=== PATIENT | male | born 1965 | race African-American/Black ===

== ENCOUNTER 2020-10-24 10:12 | Inpatient (IN) ==
[2020-10-24] MEDS ORDERED: SODIUM CHLORIDE 0.9% 2,000 ML IV STA (10:32)
[2020-10-24] MEDS ORDERED: THIAMINE 200 MG/2 ML VIAL IV STA (10:32)
[2020-10-24 11:09] LABS: Bacteria,Urine Occasional /HPF (Few); Bilirubin,Urine Negative (Negative); Blood, Urine Small mg/dL (Negative); Glucose,Urine (UA) >=500 mg/dL (Negative); Hyaline Casts,Urine 1 /LPF (0-3); Ketones,Urine 5 mg/dL (Negative); Nitrite,Urine Negative (Negative); Protein,Urine Negative; RBC,Urine 1 /HPF (0-4); Squamous Epithelial Cell,Urine Occasional /HPF (0-10); Urine Appearance Slightly Hazy (Clear); Urine Color Yellow (Yellow); Urine Specific Gravity 1.025 (1.001-1.035); Urine Urobilinogen < 2.0 EU/DL (0.2-1.0); WBC,Urine 2 /HPF (0-6)
[2020-10-24 11:18] LABS: ABG Base Excess -17.4 MMOL/L (-2.5-2.5); ABG HCO3 12.2 MMOL/L (20-26); ABG Oxygen Saturation 98.8 % (95-100); ABG PCO2 35.8 MM HG (35-48); ABG TCO2 10.6 MMOL/L (23-27)
[2020-10-24 11:20] LABS: ABG PH 7.133 (7.35-7.45)
[2020-10-24 11:21] LABS: Barbiturates Screen,Urine Negative (Negative); Benzodiazepines Screen,Urine Negative (Negative); Cannabinoid Screen,Urine Negative (Negative); Opiate Screen,Urine Negative (Negative); Phencyclidine Screen,Urine Negative (Negative)
[2020-10-24] MEDS ORDERED: cefTRIAXone 2,000 MG in SODIUM CHLORIDE 0.9% 100 ML IV ONE (11:22)
[2020-10-24 11:24] LABS: Basophils % 0.1 % (0.0-0.8); Hematocrit 46.4 VOL% (42.0-52.0); Hemoglobin 13.1 GM/DL (14.0-18.0); Immature Granulocytes % 1.9 %; Immature Granulocytes Absolute 0.26 #; Lymphocytes # 1.1 10*3/uL (1.4-4.0); Lymphocytes % 8.2 % (21.2-54.2); Mean Corpuscular HGB Conc 28.2 GM/DL (32-36); Mean Corpuscular Volume 112.9 FL (87-102); Mean Platelet Volume 11.4 FL (9.6-12.0); Monocytes % 5.6 % (1.7-12.7); Neutrophils % 84.2 % (38.7-73.9); Platelet Count 287 T/CUMM (130-400); Red Blood Count 4.11 MC/CUMM (3.8-5.5); Red Cell Distribution Width 13.2 % (9.3-17.3); White Blood Count 13.5 T/CUMM (4-12)
[2020-10-24] MEDS ORDERED: cefTRIAXone 2,000 MG in SYRINGE 1 EACH IV ONE (11:30)
[2020-10-24 11:41] LABS: INR 1.2; PT Patient Result 12.3 SECS (9.8-11.9); Partial Thromboplastin Time 26.4 SECS (23.9-33.8)
[2020-10-24 11:45] LABS: Acetaminophen 3.8 UG/ML (10-30); Salicylate 3.9 MG/DL (2.8-20)
[2020-10-24 11:50] LABS: Alanine Aminotransferase 12 U/L (16-61); Albumin 1.7 G/DL (3.4-5.0); Alkaline Phosphatase 75 U/L (45-117); Aspartate Amino Transferase 7 U/L (0-37); Bilirubin,Total < 0.39 MG/DL (0.2-1.0); Blood Urea Nitrogen 78 MG/DL (7-18); Carbon Dioxide 10 MMOL/L (21-32); Estimated Glom Filtration Rate 21 ML/MIN; Osmolality,Calculated 382.1 MOS/KG (273-304); Potassium 2.6 MMOL/L (3.5-5.1); Sodium 149 MMOL/L (136-145); Total Protein 4.4 G/DL (5.0-7.5)
[2020-10-24 11:51] LABS: Calcium 5.8 MG/DL (8.5-10.1)
[2020-10-24 11:52] LABS: Glucose 1247 MG/DL (74-106)
[2020-10-24] MEDS ORDERED: INSULIN REGULAR 100 UNIT/ML IV STA (11:57)
[2020-10-24] MEDS ORDERED: ACETAMINOPHEN 325 MG TABLET PO PRN (12:20)
[2020-10-24] MEDS ORDERED: DEXTROSE 50% 25 GM/50 ML VIAL IV PRN ×2 (12:28)
[2020-10-24] MEDS ORDERED: MAGNESIUM SULF RIDER 4 GM in PREMIX 1 EACH IV PRN (12:28)
[2020-10-24] MEDS ORDERED: SODIUM BICARB INJ 100 MEQ in STERILE WATER INJ 400 ML IV PRN (12:28)
[2020-10-24] MEDS ORDERED: SODIUM PHOSPHATE INJ 13 MMOL in SODIUM CHLORIDE 0.9% 250 ML IV PRN (12:28)
[2020-10-24] MEDS ORDERED: MAGNESIUM SULF RIDER 2 GM in PREMIX 1 EACH IV PRN (12:28)
[2020-10-24] MEDS ORDERED: SODIUM CHLORIDE 0.9% 1,000 ML IV STA (12:48)
[2020-10-24] MEDS ORDERED: NOREPINEPHRINE 8 MG in SODIUM CHLORIDE 0.9% 242 ML IV PRN (12:49)
[2020-10-24 13:09] LABS: Calcium 8.8 MG/DL (8.5-10.1); Osmolality,Calculated 397.3 MOS/KG (273-304); Potassium 5.2 MMOL/L (3.5-5.1)
[2020-10-24] MEDS: SODIUM CHLORIDE 0.9% 1,000 ML IV ONE ×3 (13:20→15:46)
[2020-10-24] MEDS: SODIUM CHLORIDE 0.9% 1,000 ML IV SCH ×6 (14:00→18:13)
[2020-10-24] MEDS: ENOXAPARIN 30 MG/0.3 ML SYRINGE SUBCUT SCH (14:30)
[2020-10-24] MEDS: PANTOPRAZOLE 40 MG VIAL IV SCH (14:30)
[2020-10-24] MEDS: SODIUM CHLOR 0.9% KCL 40 MEQ 40 MEQ/1,000 ML BAG IV SCH ×2 (14:34→20:08)
[2020-10-24] MEDS: INSULIN REGULAR DRIP 100 ML IV SCH (14:46)
[2020-10-24 14:52] LABS: ABG Base Excess -14.7 MMOL/L (-2.5-2.5); ABG HCO3 13.6 MMOL/L (20-26); ABG Oxygen Saturation 97.3 % (95-100); ABG PCO2 37.9 MM HG (35-48); ABG TCO2 12.3 MMOL/L (23-27); Allen Test Positive
[2020-10-24 17:11] LABS: Calcium 8.7 MG/DL (8.5-10.1); Osmolality,Calculated 388.7 MOS/KG (273-304); Potassium 4.6 MMOL/L (3.5-5.1)
[2020-10-24] MEDS: SODIUM CHLORIDE 0.45% 1,000 ML IV SCH (20:09)
[2020-10-24 20:59] LABS: Calcium 8.5 MG/DL (8.5-10.1); Osmolality,Calculated 389.7 MOS/KG (273-304)
[2020-10-25] MEDS: SODIUM CHLORIDE 0.45% 1,000 ML IV SCH ×5 (00:28→08:40)
[2020-10-25 00:37] LABS: Calcium 8.6 MG/DL (8.5-10.1); Potassium 4.5 MMOL/L (3.5-5.1)
[2020-10-25 00:48] LABS: Osmolality,Calculated 379.5 MOS/KG (273-304)
[2020-10-25] MEDS: SODIUM CHLOR 0.9% KCL 40 MEQ 40 MEQ/1,000 ML BAG IV SCH (04:15)
[2020-10-25 04:54] LABS: Basophils % 0.2 % (0.0-0.8); Eosinophils % 0.1 % (0.00-10.9); Hematocrit 45.7 VOL% (42.0-52.0); Hemoglobin 13.9 GM/DL (14.0-18.0); Immature Granulocytes % 0.6 %; Immature Granulocytes Absolute 0.12 #; Lymphocytes # 1.3 10*3/uL (1.4-4.0); Mean Corpuscular HGB Conc 30.4 GM/DL (32-36); Mean Platelet Volume 10.7 FL (9.6-12.0); Monocytes % 8.7 % (1.7-12.7); Neutrophils % 83.4 % (38.7-73.9); Platelet Count 219 T/CUMM (130-400); Red Blood Count 4.48 MC/CUMM (3.8-5.5); Red Cell Distribution Width 12.9 % (9.3-17.3); White Blood Count 18.6 T/CUMM (4-12)
[2020-10-25 05:17] LABS: Albumin 2.1 G/DL (3.4-5.0); Bilirubin,Total 1.1 MG/DL (0.2-1.0); Calcium 8.9 MG/DL (8.5-10.1); Osmolality,Calculated 375.2 MOS/KG (273-304); Potassium 4.9 MMOL/L (3.5-5.1)
[2020-10-25 05:52] LABS: Anisocytosis 1+; Band Neutrophils 31 % (0-10); Eosinophils 2 % (0-10); Lymphocytes 7 % (20-55); Macrocytosis 1+; Metamyelocytes 3 %; Platelet Estimate Normal; Segmented Neutrophils 53 % (50-85); Smudge Cells Few; Total Cells Counted 100
[2020-10-25 08:47] LABS: Calcium 8.9 MG/DL (8.5-10.1); Osmolality,Calculated 369.8 MOS/KG (273-304); Potassium 4.5 MMOL/L (3.5-5.1)
[2020-10-25 09:27] LABS: Amorphous Crystals,Urine Few /HPF (Few); Bacteria,Urine Occasional /HPF (Few); Bilirubin,Urine Negative (Negative); Blood, Urine Large mg/dL (Negative); Glucose,Urine (UA) >=500 mg/dL (Negative); Ketones,Urine 20 mg/dL (Negative); Mucus,Urine Occasional /LPF (Occasional); Nitrite,Urine Negative (Negative); Protein,Urine Negative; RBC,Urine 102 /HPF (0-4); Red Blood Cell Casts,Urine 9 /LPF (<1); Urine Appearance CLOUDY (Clear); Urine Color Yellow (Yellow); Urine Specific Gravity 1.016 (1.001-1.035); Urine Urobilinogen < 2.0 EU/DL (0.2-1.0); WBC,Urine 9 /HPF (0-6)
[2020-10-25] MEDS: FOLIC ACID INJ 1 MG in SYRINGE 1 EACH IV SCH (09:49)
[2020-10-25] MEDS: THIAMINE 200 MG/2 ML VIAL IV SCH (09:49)
[2020-10-25] MEDS: MULTIVITAMIN (BEROCCA) TABLET PO SCH (09:50)
[2020-10-25] MEDS ORDERED: SODIUM CHLORIDE 23.4% CONC INJ 38.5 MEQ in STERILE WATER INJ 1,000 ML IV SCH (12:00)
[2020-10-25] MEDS: PANTOPRAZOLE 40 MG VIAL IV SCH (12:05)
[2020-10-25] MEDS: ENOXAPARIN 30 MG/0.3 ML SYRINGE SUBCUT SCH (12:31)
[2020-10-25] MEDS: INSULIN REGULAR DRIP 100 ML IV SCH (12:32)
[2020-10-25 13:03] LABS: Calcium 9.3 MG/DL (8.5-10.1); Osmolality,Calculated 363.5 MOS/KG (273-304); Potassium 4.2 MMOL/L (3.5-5.1)
[2020-10-25 16:52] LABS: Calcium 9.1 MG/DL (8.5-10.1); Osmolality,Calculated 357.3 MOS/KG (273-304); Potassium 3.9 MMOL/L (3.5-5.1)
[2020-10-25] MEDS: DEXTROSE 5% 1,000 ML IV SCH (17:42)
[2020-10-25] MEDS: POTASSIUM CHLORIDE RIDER 10 MEQ in PREMIX 1 EACH IV PRN ×3 (17:48→21:49)
[2020-10-25 20:23] LABS: Osmolality,Calculated 351.5 MOS/KG (273-304); Potassium 3.5 MMOL/L (3.5-5.1)
[2020-10-26 03:47] LABS: Basophils % 0.3 % (0.0-0.8); Eosinophils # 0.1 10*3/uL (0.0-0.87); Eosinophils % 0.7 % (0.00-10.9); Hematocrit 38.4 VOL% (42.0-52.0); Immature Granulocytes % 0.6 %; Immature Granulocytes Absolute 0.07 #; Lymphocytes # 1.5 10*3/uL (1.4-4.0); Lymphocytes % 13.1 % (21.2-54.2); Mean Corpuscular HGB Conc 33.9 GM/DL (32-36); Mean Corpuscular Volume 94.8 FL (87-102); Mean Platelet Volume 10.3 FL (9.6-12.0); Neutrophils % 79.3 % (38.7-73.9); Platelet Count 141 T/CUMM (130-400); Red Blood Count 4.05 MC/CUMM (3.8-5.5); White Blood Count 11.6 T/CUMM (4-12)
[2020-10-26 04:04] LABS: Albumin 2.1 G/DL (3.4-5.0); Bilirubin,Total 0.9 MG/DL (0.2-1.0); Calcium 9.2 MG/DL (8.5-10.1); Osmolality,Calculated 343.5 MOS/KG (273-304); Potassium 3.2 MMOL/L (3.5-5.1); Total Protein 6.1 G/DL (5.0-7.5)
[2020-10-26] MEDS: DEXTROSE 5% 1,000 ML IV SCH ×2 (04:34→13:52)
[2020-10-26] MEDS: POTASSIUM CHLORIDE RIDER 10 MEQ in PREMIX 1 EACH IV PRN ×13 (04:35→23:23)
[2020-10-26 04:58] LABS: Hepatitis B Core IgM Quant < 0.05 Index; Hepatitis B Surface Ag Quant < 0.10 Index; Hepatitis B Surface Ag Result Non-Reactive (NonReactive); Hepatitis C Virus Ab Quant 0.08 Index; Hepatitis C Virus Ab Result Non-Reactive (NonReactive)
[2020-10-26] MEDS ORDERED: HALOPERIDOL 5 MG/ML AMP IM PRN (08:42)
[2020-10-26] MEDS ORDERED: GLUCAGON 1 MG VIAL IM PRN (08:49)
[2020-10-26 08:52] LABS: Osmolality,Calculated 342.8 MOS/KG (273-304); Potassium 3.4 MMOL/L (3.5-5.1)
[2020-10-26] MEDS: FOLIC ACID INJ 1 MG in SYRINGE 1 EACH IV SCH (09:21)
[2020-10-26] MEDS: THIAMINE 200 MG/2 ML VIAL IV SCH (09:21)
[2020-10-26] MEDS: INSULIN GLARGINE 100 UNIT/ML SUBCUT SCH (09:21)
[2020-10-26] MEDS: MULTIVITAMIN (BEROCCA) TABLET PO SCH (09:21)
[2020-10-26] MEDS: INSULIN LISPRO 100 UNIT/ML SUBCUT SCH ×4 (09:22→20:02)
[2020-10-26] MEDS: ENOXAPARIN 30 MG/0.3 ML SYRINGE SUBCUT SCH (12:00)
[2020-10-26] MEDS: PANTOPRAZOLE 40 MG VIAL IV SCH (12:00)
[2020-10-26 13:23] LABS: Calcium 8.9 MG/DL (8.5-10.1); Osmolality,Calculated 332.3 MOS/KG (273-304); Potassium 3.5 MMOL/L (3.5-5.1)
[2020-10-26] MEDS: HALOPERIDOL 5 MG/ML AMP IV PRN ×2 (14:30→20:03)
[2020-10-26 16:32] LABS: Osmolality,Calculated 330.6 MOS/KG (273-304); Potassium 3.6 MMOL/L (3.5-5.1)
[2020-10-26 20:28] LABS: Calcium 8.9 MG/DL (8.5-10.1); Osmolality,Calculated 324.9 MOS/KG (273-304); Potassium 3.5 MMOL/L (3.5-5.1)
[2020-10-27 00:22] LABS: Calcium 8.9 MG/DL (8.5-10.1); Osmolality,Calculated 314.3 MOS/KG (273-304); Potassium 3.9 MMOL/L (3.5-5.1)
[2020-10-27] MEDS: INSULIN LISPRO 100 UNIT/ML SUBCUT SCH ×6 (00:37→20:22)
[2020-10-27] MEDS: POTASSIUM CHLORIDE RIDER 10 MEQ in PREMIX 1 EACH IV PRN (00:39)
[2020-10-27] MEDS: DEXTROSE 5% 1,000 ML IV SCH ×3 (03:12→16:57)
[2020-10-27 04:16] LABS: Basophils % 0.1 % (0.0-0.8); Eosinophils # 0.1 10*3/uL (0.0-0.87); Eosinophils % 1.2 % (0.00-10.9); Hematocrit 37.8 VOL% (42.0-52.0); Hemoglobin 11.9 GM/DL (14.0-18.0); Immature Granulocytes % 0.8 %; Immature Granulocytes Absolute 0.08 #; Lymphocytes # 2.2 10*3/uL (1.4-4.0); Mean Corpuscular HGB Conc 31.5 GM/DL (32-36); Mean Corpuscular Volume 100.5 FL (87-102); Mean Platelet Volume 10.9 FL (9.6-12.0); Monocytes % 6.6 % (1.7-12.7); Neutrophils % 68.3 % (38.7-73.9); Platelet Count 102 T/CUMM (130-400); Red Blood Count 3.76 MC/CUMM (3.8-5.5); Red Cell Distribution Width 13.2 % (9.3-17.3); White Blood Count 9.5 T/CUMM (4-12)
[2020-10-27 04:42] LABS: Calcium 8.7 MG/DL (8.5-10.1); Osmolality,Calculated 316.4 MOS/KG (273-304)
[2020-10-27 04:51] LABS: Band Neutrophils 3 % (0-10); Eosinophils 1 % (0-10); Hypochromasia 1+; Lymphocytes 18 % (20-55); Microcytosis 1+; Platelet Estimate Decreased; Segmented Neutrophils 76 % (50-85); Total Cells Counted 100
[2020-10-27] MEDS: MULTIVITAMIN (BEROCCA) TABLET PO SCH (08:37)
[2020-10-27] MEDS: INSULIN GLARGINE 100 UNIT/ML SUBCUT SCH (08:37)
[2020-10-27] MEDS: THIAMINE 200 MG/2 ML VIAL IV SCH (08:37)
[2020-10-27] MEDS: FONDAPARINUX 2.5 MG/0.5 ML SYRINGE SUBCUT SCH (08:37)
[2020-10-27] MEDS: FOLIC ACID INJ 1 MG in SYRINGE 1 EACH IV SCH (08:39)
[2020-10-27] MEDS ORDERED: FAMOTIDINE 20 MG/2 ML VIAL IV SCH (09:00)
[2020-10-27] MEDS ORDERED: ENOXAPARIN 40 MG/0.4 ML SYRINGE SUBCUT SCH (09:00)
[2020-10-27] MEDS ORDERED: POTASSIUM PHOSPHATE 30 MMOL in SODIUM CHLORIDE 0.9% 250 ML IV ONE (10:00)
[2020-10-27] MEDS ORDERED: HALOPERIDOL 5 MG/ML AMP IM PRN (17:00)
[2020-10-27] MEDS ORDERED: PALIPERIDONE PALMITATE IM SCH (17:15)
[2020-10-27] MEDS: LITHIUM ER 300 MG TABLET PO SCH (20:05)
[2020-10-27] MEDS: DIVALPROEX ER 500 MG TABLET PO SCH (20:23)
[2020-10-27] MEDS: FAMOTIDINE 8 MG/ML 50 ML/BOTTLE PO SCH (20:23)
[2020-10-28] MEDS: DEXTROSE 5% 1,000 ML IV SCH ×2 (00:04→06:04)
[2020-10-28] MEDS: INSULIN LISPRO 100 UNIT/ML SUBCUT SCH ×6 (00:04→20:47)
[2020-10-28 04:54] LABS: Basophils % 0.1 % (0.0-0.8); Eosinophils # 0.2 10*3/uL (0.0-0.87); Eosinophils % 1.8 % (0.00-10.9); Hematocrit 42.7 VOL% (42.0-52.0); Hemoglobin 13.6 GM/DL (14.0-18.0); Immature Granulocytes % 0.2 %; Immature Granulocytes Absolute 0.02 #; Lymphocytes # 2.2 10*3/uL (1.4-4.0); Lymphocytes % 26.2 % (21.2-54.2); Mean Corpuscular HGB Conc 31.9 GM/DL (32-36); Mean Corpuscular Volume 98.8 FL (87-102); Mean Platelet Volume 10.7 FL (9.6-12.0); Monocytes % 5.8 % (1.7-12.7); Neutrophils % 65.9 % (38.7-73.9); Platelet Count 103 T/CUMM (130-400); Red Blood Count 4.32 MC/CUMM (3.8-5.5); Red Cell Distribution Width 12.8 % (9.3-17.3); White Blood Count 8.3 T/CUMM (4-12)
[2020-10-28 05:11] LABS: Calcium 9.2 MG/DL (8.5-10.1); Osmolality,Calculated 304.7 MOS/KG (273-304); Potassium 4.7 MMOL/L (3.5-5.1)
[2020-10-28] MEDS: INSULIN GLARGINE 100 UNIT/ML SUBCUT SCH (08:22)
[2020-10-28] MEDS: FOLIC ACID 1 MG TABLET PO SCH (08:22)
[2020-10-28] MEDS: THIAMINE 100 MG TABLET PO SCH (08:22)
[2020-10-28] MEDS: FAMOTIDINE 8 MG/ML 50 ML/BOTTLE PO SCH ×2 (08:22→20:48)
[2020-10-28] MEDS: FONDAPARINUX 2.5 MG/0.5 ML SYRINGE SUBCUT SCH (08:22)
[2020-10-28] MEDS: MULTIVITAMIN (BEROCCA) TABLET PO SCH (08:22)
[2020-10-28] MEDS: DIVALPROEX ER 500 MG TABLET PO SCH (20:48)
[2020-10-28] MEDS: LITHIUM ER 300 MG TABLET PO SCH (20:48)
[2020-10-29] MEDS: INSULIN LISPRO 100 UNIT/ML SUBCUT SCH ×6 (00:40→20:58)
[2020-10-29] MEDS: INSULIN GLARGINE 100 UNIT/ML SUBCUT SCH (08:16)
[2020-10-29] MEDS: MULTIVITAMIN (BEROCCA) TABLET PO SCH (08:16)
[2020-10-29] MEDS: FOLIC ACID 1 MG TABLET PO SCH (08:16)
[2020-10-29] MEDS: FONDAPARINUX 2.5 MG/0.5 ML SYRINGE SUBCUT SCH (08:16)
[2020-10-29] MEDS: THIAMINE 100 MG TABLET PO SCH (08:17)
[2020-10-29] MEDS: FAMOTIDINE 8 MG/ML 50 ML/BOTTLE PO SCH ×2 (08:17→20:59)
[2020-10-29] MEDS: LITHIUM ER 300 MG TABLET PO SCH (20:58)
[2020-10-29] MEDS: DIVALPROEX ER 500 MG TABLET PO SCH (20:58)
[2020-10-30] MEDS: INSULIN LISPRO 100 UNIT/ML SUBCUT SCH ×6 (00:05→21:12)
[2020-10-30] MEDS: MULTIVITAMIN (BEROCCA) TABLET PO SCH (08:06)
[2020-10-30] MEDS: FONDAPARINUX 2.5 MG/0.5 ML SYRINGE SUBCUT SCH (08:06)
[2020-10-30] MEDS: THIAMINE 100 MG TABLET PO SCH (08:07)
[2020-10-30] MEDS: INSULIN GLARGINE 100 UNIT/ML SUBCUT SCH (08:07)
[2020-10-30] MEDS: FOLIC ACID 1 MG TABLET PO SCH (08:07)
[2020-10-30] MEDS: FAMOTIDINE 8 MG/ML 50 ML/BOTTLE PO SCH ×2 (08:07→21:13)
[2020-10-30] MEDS: DIVALPROEX ER 500 MG TABLET PO SCH (21:13)
[2020-10-30] MEDS: LITHIUM ER 300 MG TABLET PO SCH (21:13)
[2020-10-31] MEDS: INSULIN LISPRO 100 UNIT/ML SUBCUT SCH ×5 (01:27→19:09)
[2020-10-31] MEDS: FAMOTIDINE 8 MG/ML 50 ML/BOTTLE PO SCH ×2 (09:27→20:29)
[2020-10-31] MEDS: MULTIVITAMIN (BEROCCA) TABLET PO SCH (09:27)
[2020-10-31] MEDS: FOLIC ACID 1 MG TABLET PO SCH (09:27)
[2020-10-31] MEDS: FONDAPARINUX 2.5 MG/0.5 ML SYRINGE SUBCUT SCH (09:27)
[2020-10-31] MEDS: INSULIN GLARGINE 100 UNIT/ML SUBCUT SCH ×2 (09:27→15:37)
[2020-10-31] MEDS: THIAMINE 100 MG TABLET PO SCH (09:28)
[2020-10-31 13:09] LABS: Basophils % 0.3 % (0.0-0.8); Hematocrit 56.7 VOL% (42.0-52.0); Hemoglobin 16.7 GM/DL (14.0-18.0); Immature Granulocytes % 1.6 %; Immature Granulocytes Absolute 0.15 #; Lymphocytes # 1.4 10*3/uL (1.4-4.0); Lymphocytes % 15.1 % (21.2-54.2); Mean Corpuscular HGB Conc 29.5 GM/DL (32-36); Mean Corpuscular Volume 105.6 FL (87-102); Mean Platelet Volume 11.7 FL (9.6-12.0); Monocytes % 5.8 % (1.7-12.7); Neutrophils % 77.2 % (38.7-73.9); Platelet Count 384 T/CUMM (130-400); Red Blood Count 5.37 MC/CUMM (3.8-5.5); White Blood Count 9.3 T/CUMM (4-12)
[2020-10-31] MEDS ORDERED: SODIUM CHLORIDE 0.9% 1,000 ML IV SCH (13:30)
[2020-10-31 13:33] LABS: Albumin 3.1 G/DL (3.4-5.0); Bilirubin,Total 0.7 MG/DL (0.2-1.0); Calcium 10.9 MG/DL (8.5-10.1); Osmolality,Calculated 373.1 MOS/KG (273-304); Potassium 5.8 MMOL/L (3.5-5.1); Total Protein 8.8 G/DL (5.0-7.5)
[2020-10-31] MEDS: HALOPERIDOL 5 MG/ML AMP IM PRN ×2 (14:57→17:32)
[2020-10-31] MEDS ORDERED: LACTATED RINGERS 2,000 ML IV ONE (15:29)
[2020-10-31] MEDS ORDERED: MIDAZOLAM 2 MG/2 ML VIAL IV ONE (18:05)
[2020-10-31] MEDS ORDERED: MIDAZOLAM 2 MG/2 ML VIAL ONE (18:08)
[2020-10-31] MEDS: LACTATED RINGERS 1,000 ML IV SCH (18:13)
[2020-10-31] MEDS ORDERED: DEXTROSE 50% 25 GM/50 ML VIAL IV PRN (18:28)
[2020-10-31] MEDS ORDERED: INSULIN REGULAR DRIP 100 ML IV SCH (18:30)
[2020-10-31] MEDS ORDERED: LACTATED RINGERS 1,000 ML IV ONE (18:32)
[2020-10-31 19:50] LABS: Calcium 10.1 MG/DL (8.5-10.1); Osmolality,Calculated 355.5 MOS/KG (273-304)
[2020-10-31] MEDS: DIVALPROEX ER 500 MG TABLET PO SCH (20:29)
[2020-10-31] MEDS: HALOPERIDOL 5 MG TABLET PO SCH (20:29)
[2020-10-31] MEDS: LITHIUM ER 300 MG TABLET PO SCH (20:29)
[2020-10-31 23:36] LABS: Calcium 9.7 MG/DL (8.5-10.1); Osmolality,Calculated 344.9 MOS/KG (273-304)
[2020-11-01] MEDS: HALOPERIDOL 5 MG/ML AMP IM PRN ×3 (00:15→08:52)
[2020-11-01] MEDS ORDERED: DEXTROSE 5% LACTATED RINGERS 1,000 ML IV SCH (00:30)
[2020-11-01] MEDS: HALOPERIDOL 5 MG TABLET PO SCH ×2 (02:20→08:52)
[2020-11-01 03:40] LABS: Basophils % 0.1 % (0.0-0.8); Eosinophils % 0.1 % (0.00-10.9); Hematocrit 43.3 VOL% (42.0-52.0); Immature Granulocytes % 0.4 %; Immature Granulocytes Absolute 0.04 #; Lymphocytes # 2.5 10*3/uL (1.4-4.0); Lymphocytes % 24.3 % (21.2-54.2); Mean Corpuscular HGB Conc 32.3 GM/DL (32-36); Mean Corpuscular Volume 96.7 FL (87-102); Monocytes % 8.4 % (1.7-12.7); Neutrophils % 66.7 % (38.7-73.9); Platelet Count 251 T/CUMM (130-400); Red Blood Count 4.48 MC/CUMM (3.8-5.5); Red Cell Distribution Width 12.5 % (9.3-17.3); White Blood Count 10.3 T/CUMM (4-12)
[2020-11-01] MEDS: LACTATED RINGERS 1,000 ML IV SCH (03:42)
[2020-11-01 04:02] LABS: Calcium 9.7 MG/DL (8.5-10.1); Osmolality,Calculated 341.9 MOS/KG (273-304); Potassium 3.8 MMOL/L (3.5-5.1)
[2020-11-01] MEDS: DEXTROSE 5% NACL 0.45% 1,000 ML IV SCH ×2 (07:51→14:45)
[2020-11-01 08:21] LABS: Calcium 9.5 MG/DL (8.5-10.1); Osmolality,Calculated 341.8 MOS/KG (273-304)
[2020-11-01] MEDS: INSULIN GLARGINE 100 UNIT/ML SUBCUT SCH (08:32)
[2020-11-01] MEDS: FONDAPARINUX 2.5 MG/0.5 ML SYRINGE SUBCUT SCH (08:33)
[2020-11-01] MEDS: MULTIVITAMIN (BEROCCA) TABLET PO SCH (08:52)
[2020-11-01] MEDS: FAMOTIDINE 8 MG/ML 50 ML/BOTTLE PO SCH ×2 (08:53→20:09)
[2020-11-01] MEDS: FOLIC ACID 1 MG TABLET PO SCH (08:53)
[2020-11-01] MEDS: THIAMINE 100 MG TABLET PO SCH (08:53)
[2020-11-01] MEDS ORDERED: HALOPERIDOL 5 MG/ML AMP IM PRN (10:23)
[2020-11-01] MEDS: HALOPERIDOL 5 MG/ML AMP IV PRN ×7 (10:25→23:18)
[2020-11-01] MEDS: VALPROIC ACID INJ 500 MG in SODIUM CHLORIDE 0.9% 100 ML IV SCH (14:34)
[2020-11-01 14:39] LABS: Calcium 9.2 MG/DL (8.5-10.1); Osmolality,Calculated 339.3 MOS/KG (273-304); Potassium 4.1 MMOL/L (3.5-5.1)
[2020-11-01] MEDS: INSULIN REGULAR 100 UNIT/ML IV SCH ×2 (14:43→18:34)
[2020-11-01] MEDS: LITHIUM ER 300 MG TABLET PO SCH (20:08)
[2020-11-01] MEDS: INSULIN LISPRO 100 UNIT/ML IV SCH (20:08)
[2020-11-02] MEDS: HALOPERIDOL 5 MG/ML AMP IV PRN ×14 (00:29→22:45)
[2020-11-02] MEDS: INSULIN LISPRO 100 UNIT/ML IV SCH ×6 (00:35→21:06)
[2020-11-02] MEDS: VALPROIC ACID INJ 500 MG in SODIUM CHLORIDE 0.9% 100 ML IV SCH ×2 (00:50→13:46)
[2020-11-02] MEDS: DEXTROSE 5% NACL 0.45% 1,000 ML IV SCH ×5 (04:20→22:33)
[2020-11-02 06:11] LABS: Alanine Aminotransferase 19 U/L (16-61); Alkaline Phosphatase 74 U/L (45-117); Aspartate Amino Transferase 60 U/L (0-37); Bilirubin,Total < 0.39 MG/DL (0.2-1.0); Blood Urea Nitrogen 31 MG/DL (7-18); Calcium 8.8 MG/DL (8.5-10.1); Carbon Dioxide 30 MMOL/L (21-32); Estimated Glom Filtration Rate 96 ML/MIN; Glucose 112 MG/DL (74-106); Osmolality,Calculated 327.3 MOS/KG (273-304); Potassium 3.2 MMOL/L (3.5-5.1); Total Protein 5.7 G/DL (5.0-7.5)
[2020-11-02 06:14] LABS: Sodium 162 MMOL/L (136-145)
[2020-11-02] MEDS: POTASSIUM CHLORIDE RIDER 10 MEQ in PREMIX 1 EACH IV PRN ×2 (07:04→09:35)
[2020-11-02] MEDS: INSULIN GLARGINE 100 UNIT/ML SUBCUT SCH (09:34)
[2020-11-02] MEDS: FONDAPARINUX 2.5 MG/0.5 ML SYRINGE SUBCUT SCH (09:35)
[2020-11-02] MEDS: MULTIVITAMIN (BEROCCA) TABLET PO SCH (09:54)
[2020-11-02] MEDS: FOLIC ACID 1 MG TABLET PO SCH (09:54)
[2020-11-02] MEDS: THIAMINE 100 MG TABLET PO SCH (09:55)
[2020-11-02] MEDS: FAMOTIDINE 8 MG/ML 50 ML/BOTTLE PO SCH ×2 (09:55→21:06)
[2020-11-02] MEDS: LORazepam 2 MG/1 ML VIAL IV PRN ×4 (10:20→22:45)
[2020-11-02] MEDS: DEXTROSE 50% 25 GM/50 ML VIAL IV PRN ×2 (17:14→23:27)
[2020-11-02] MEDS: LITHIUM ER 300 MG TABLET PO SCH (21:06)
[2020-11-03] MEDS: HALOPERIDOL 5 MG/ML AMP IV PRN ×5 (00:36→23:30)
[2020-11-03] MEDS: VALPROIC ACID INJ 500 MG in SODIUM CHLORIDE 0.9% 100 ML IV SCH ×2 (00:37→12:03)
[2020-11-03] MEDS: DEXTROSE 50% 25 GM/50 ML VIAL IV PRN ×2 (03:50→20:59)
[2020-11-03] MEDS: DEXTROSE 5% NACL 0.45% 1,000 ML IV SCH (05:17)
[2020-11-03 05:34] LABS: Osmolality,Calculated 315.9 MOS/KG (273-304); Potassium 3.4 MMOL/L (3.5-5.1)
[2020-11-03] MEDS: POTASSIUM CHLORIDE RIDER 10 MEQ in PREMIX 1 EACH IV PRN ×3 (06:21→08:21)
[2020-11-03] MEDS: INSULIN LISPRO 100 UNIT/ML IV SCH ×4 (07:51→21:01)
[2020-11-03] MEDS: DEXT 5% NACL 0.45% KCL 20 MEQ 20 MEQ/1,000 ML BAG IV SCH ×3 (09:45→23:07)
[2020-11-03] MEDS: FOLIC ACID 1 MG TABLET PO SCH (09:57)
[2020-11-03] MEDS: MULTIVITAMIN (BEROCCA) TABLET PO SCH (09:57)
[2020-11-03] MEDS: INSULIN GLARGINE 100 UNIT/ML SUBCUT SCH (09:57)
[2020-11-03] MEDS: FAMOTIDINE 8 MG/ML 50 ML/BOTTLE PO SCH ×2 (09:58→21:01)
[2020-11-03] MEDS: THIAMINE 100 MG TABLET PO SCH (09:58)
[2020-11-03] MEDS ORDERED: HALOPERIDOL DECANOATE 50 MG/1 ML VIAL IM SCH (15:00)
[2020-11-03] MEDS: LORazepam 2 MG/1 ML VIAL IV PRN ×2 (19:57→23:29)
[2020-11-03] MEDS: LITHIUM ER 300 MG TABLET PO SCH (21:01)
[2020-11-04] MEDS: VALPROIC ACID INJ 500 MG in SODIUM CHLORIDE 0.9% 100 ML IV SCH ×2 (00:46→13:49)
[2020-11-04] MEDS: DEXTROSE 50% 25 GM/50 ML VIAL IV PRN ×3 (05:06→20:22)
[2020-11-04] MEDS: DEXT 5% NACL 0.45% KCL 20 MEQ 20 MEQ/1,000 ML BAG IV SCH ×5 (06:00→21:53)
[2020-11-04 07:33] LABS: Basophils % 0.2 % (0.0-0.8); Eosinophils # 0.1 10*3/uL (0.0-0.87); Eosinophils % 1.7 % (0.00-10.9); Hemoglobin 11.4 GM/DL (14.0-18.0); Immature Granulocytes % 1.2 %; Immature Granulocytes Absolute 0.08 #; Lymphocytes # 2.2 10*3/uL (1.4-4.0); Lymphocytes % 33.6 % (21.2-54.2); Mean Corpuscular HGB Conc 30.8 GM/DL (32-36); Mean Corpuscular Volume 100.8 FL (87-102); Mean Platelet Volume 9.8 FL (9.6-12.0); Monocytes % 8.6 % (1.7-12.7); Neutrophils % 54.7 % (38.7-73.9); Red Blood Count 3.67 MC/CUMM (3.8-5.5); Red Cell Distribution Width 12.3 % (9.3-17.3)
[2020-11-04 07:41] LABS: Platelet Count 173 T/CUMM (130-400); White Blood Count 6.6 T/CUMM (4-12)
[2020-11-04 07:53] LABS: Calcium 8.1 MG/DL (8.5-10.1); Osmolality,Calculated 300.7 MOS/KG (273-304); Potassium 3.7 MMOL/L (3.5-5.1)
[2020-11-04] MEDS: INSULIN LISPRO 100 UNIT/ML IV SCH ×4 (07:57→20:31)
[2020-11-04 08:10] LABS: Eosinophils 1 % (0-10); Hypochromasia Slight; Lymphocytes 31 % (20-55); Microcytosis 1+; Segmented Neutrophils 58 % (50-85); Total Cells Counted 100
[2020-11-04 08:11] LABS: Platelet Estimate Adequate
[2020-11-04] MEDS: FOLIC ACID 1 MG TABLET PO SCH (08:33)
[2020-11-04] MEDS: INSULIN GLARGINE 100 UNIT/ML SUBCUT SCH (08:33)
[2020-11-04] MEDS: MULTIVITAMIN (BEROCCA) TABLET PO SCH (08:33)
[2020-11-04] MEDS: THIAMINE 100 MG TABLET PO SCH (08:34)
[2020-11-04] MEDS: FAMOTIDINE 8 MG/ML 50 ML/BOTTLE PO SCH ×2 (08:34→20:32)
[2020-11-04] MEDS: ENOXAPARIN 40 MG/0.4 ML SYRINGE SUBCUT SCH (20:18)
[2020-11-04] MEDS: LITHIUM ER 300 MG TABLET PO SCH (20:28)
[2020-11-04] MEDS: HALOPERIDOL 5 MG/ML AMP IV PRN (21:25)
[2020-11-05] MEDS: VALPROIC ACID INJ 500 MG in SODIUM CHLORIDE 0.9% 100 ML IV SCH (00:07)
[2020-11-05 05:42] LABS: Basophils % 0.3 % (0.0-0.8); Eosinophils # 0.1 10*3/uL (0.0-0.87); Hematocrit 37.6 VOL% (42.0-52.0); Immature Granulocytes % 0.8 %; Immature Granulocytes Absolute 0.05 #; Lymphocytes # 2.2 10*3/uL (1.4-4.0); Lymphocytes % 35.4 % (21.2-54.2); Mean Corpuscular HGB Conc 31.9 GM/DL (32-36); Mean Corpuscular Volume 98.7 FL (87-102); Mean Platelet Volume 10.7 FL (9.6-12.0); Monocytes % 6.1 % (1.7-12.7); Neutrophils % 56.4 % (38.7-73.9); Platelet Count 187 T/CUMM (130-400); Red Blood Count 3.81 MC/CUMM (3.8-5.5); Red Cell Distribution Width 12.1 % (9.3-17.3); White Blood Count 6.3 T/CUMM (4-12)
[2020-11-05 06:02] LABS: Calcium 8.5 MG/DL (8.5-10.1); Osmolality,Calculated 288.3 MOS/KG (273-304); Potassium 3.6 MMOL/L (3.5-5.1)
[2020-11-05 06:16] LABS: Eosinophils 1 % (0-10); Lymphocytes 35 % (20-55); Metamyelocytes 1 %; Segmented Neutrophils 59 % (50-85); Total Cells Counted 100
[2020-11-05 06:17] LABS: Microcytosis Slight; Platelet Estimate Adequate
[2020-11-05] MEDS: INSULIN LISPRO 100 UNIT/ML IV SCH ×3 (06:40→16:28)
[2020-11-05] MEDS: POTASSIUM CHLORIDE RIDER 10 MEQ in PREMIX 1 EACH IV PRN (06:46)
[2020-11-05] MEDS: FOLIC ACID 1 MG TABLET PO SCH (08:29)
[2020-11-05] MEDS: MULTIVITAMIN (BEROCCA) TABLET PO SCH (08:29)
[2020-11-05] MEDS: THIAMINE 100 MG TABLET PO SCH (08:30)
[2020-11-05] MEDS: DEXT 5% NACL 0.45% KCL 20 MEQ 20 MEQ/1,000 ML BAG IV SCH (09:02)
[2020-11-05] MEDS: INSULIN GLARGINE 100 UNIT/ML SUBCUT SCH (10:06)
[2020-11-05] MEDS: FAMOTIDINE 8 MG/ML 50 ML/BOTTLE PO SCH (10:09)
[2020-11-05] MEDS: HALOPERIDOL DECANOATE 50 MG/1 ML VIAL IM SCH (10:09)
[2020-11-05] MEDS ORDERED: HALOPERIDOL 5 MG/ML AMP IM PRN ×2 (16:31)
[2020-11-05] MEDS: LITHIUM ER 300 MG TABLET PO SCH (21:08)
[2020-11-05] MEDS: DIVALPROEX ER 500 MG TABLET PO SCH (21:08)
[2020-11-05] MEDS: FAMOTIDINE 20 MG TABLET PO SCH (21:08)
[2020-11-05] MEDS: ENOXAPARIN 40 MG/0.4 ML SYRINGE SUBCUT SCH (21:09)
[2020-11-05] MEDS: INSULIN LISPRO 100 UNIT/ML SUBCUT SCH (21:09)
[2020-11-06 06:19] LABS: Calcium 8.2 MG/DL (8.5-10.1); Osmolality,Calculated 288.4 MOS/KG (273-304); Potassium 3.5 MMOL/L (3.5-5.1)
[2020-11-06] MEDS: INSULIN LISPRO 100 UNIT/ML SUBCUT SCH ×4 (08:23→21:15)
[2020-11-06] MEDS ORDERED: INSULIN GLARGINE 100 UNIT/ML SUBCUT SCH (09:00)
[2020-11-06] MEDS: THIAMINE 100 MG TABLET PO SCH (09:23)
[2020-11-06] MEDS: MULTIVITAMIN (BEROCCA) TABLET PO SCH (09:23)
[2020-11-06] MEDS: FAMOTIDINE 20 MG TABLET PO SCH ×2 (09:23→21:14)
[2020-11-06] MEDS: FOLIC ACID 1 MG TABLET PO SCH (09:23)
[2020-11-06] MEDS: INSULIN GLARGINE 100 UNIT/ML SUBCUT SCH (09:23)
[2020-11-06] MEDS: ENOXAPARIN 40 MG/0.4 ML SYRINGE SUBCUT SCH (21:14)
[2020-11-06] MEDS: DIVALPROEX ER 500 MG TABLET PO SCH (21:14)
[2020-11-06] MEDS: LITHIUM ER 300 MG TABLET PO SCH (21:14)
[2020-11-07] MEDS: INSULIN LISPRO 100 UNIT/ML SUBCUT SCH (06:58)
[2020-11-07 08:09] LABS: Basophils % 0.4 % (0.0-0.8); Eosinophils # 0.1 10*3/uL (0.0-0.87); Eosinophils % 0.9 % (0.00-10.9); Hematocrit 38.1 VOL% (42.0-52.0); Immature Granulocytes % 1.2 %; Lymphocytes # 3.6 10*3/uL (1.4-4.0); Lymphocytes % 44.4 % (21.2-54.2); Mean Corpuscular HGB Conc 31.5 GM/DL (32-36); Mean Corpuscular Volume 97.9 FL (87-102); Mean Platelet Volume 9.8 FL (9.6-12.0); Monocytes % 6.7 % (1.7-12.7); Neutrophils % 46.4 % (38.7-73.9); Platelet Count 299 T/CUMM (130-400); Red Blood Count 3.89 MC/CUMM (3.8-5.5); Red Cell Distribution Width 12.1 % (9.3-17.3); White Blood Count 8.2 T/CUMM (4-12)
[2020-11-07 08:23] LABS: Calcium 8.9 MG/DL (8.5-10.1); Potassium 3.5 MMOL/L (3.5-5.1)
[2020-11-07] MEDS: HALOPERIDOL DECANOATE 50 MG/1 ML VIAL IM SCH (08:46)
[2020-11-07] MEDS: INSULIN GLARGINE 100 UNIT/ML SUBCUT SCH (08:47)
[2020-11-07] MEDS: FAMOTIDINE 20 MG TABLET PO SCH (08:47)
[2020-11-07] MEDS: MULTIVITAMIN (BEROCCA) TABLET PO SCH (08:47)
[2020-11-07] MEDS: THIAMINE 100 MG TABLET PO SCH (08:47)
[2020-11-07] MEDS: FOLIC ACID 1 MG TABLET PO SCH (08:47)
[2020-11-07 11:31] VITALS: BP 92/52
== END 2020-11-07 12:01 | disposition home or self-care (01) | DRG 637 ==
LOC: EDBD → EDUNIT# → N.ED 10:12 → SUATTDRO 12:20 → N.EDINP 12:20 → N.ICU 13:34 → N.5E 10-28 09:13 → N.ICU 10-31 14:44 → N.3E 11-05 17:40
PROVIDERS: ADMIT Internal Medicine; ATTEND Internal Medicine

== ENCOUNTER 2020-12-03 20:41 | Inpatient (IN) ==
[2020-12-03] MEDS ORDERED: SODIUM CHLORIDE 0.9% 1,000 ML IV STA ×2 (21:36→22:31)
[2020-12-03 21:45] LABS: Basophils % 0.4 % (0.0-0.8); Hematocrit 52.4 VOL% (42.0-52.0); Hemoglobin 17.3 GM/DL (14.0-18.0); Immature Granulocytes % 0.7 %; Immature Granulocytes Absolute 0.07 #; Lymphocytes # 2.3 10*3/uL (1.4-4.0); Lymphocytes % 22.1 % (21.2-54.2); Mean Corpuscular Volume 98.3 FL (87-102); Mean Platelet Volume 9.5 FL (9.6-12.0); Monocytes % 4.2 % (1.7-12.7); Neutrophils % 72.6 % (38.7-73.9); Platelet Count 410 T/CUMM (130-400); Red Blood Count 5.33 MC/CUMM (3.8-5.5); Red Cell Distribution Width 15.1 % (9.3-17.3); White Blood Count 10.5 T/CUMM (4-12)
[2020-12-03 22:06] LABS: Albumin 3.9 G/DL (3.4-5.0); Bilirubin,Total 0.9 MG/DL (0.2-1.0); Calcium 11.5 MG/DL (8.5-10.1); Osmolality,Calculated 317.8 MOS/KG (273-304); Potassium 5.6 MMOL/L (3.5-5.1); Total Protein 9.7 G/DL (6.4-8.2)
[2020-12-03 22:15] LABS: Bilirubin,Urine Negative (Negative); Blood, Urine Negative (Negative); Glucose,Urine (UA) >=500 mg/dL (Negative); Ketones,Urine 20 mg/dL (Negative); Mucus,Urine Occasional /LPF (Occasional); Nitrite,Urine Negative (Negative); Protein,Urine Negative; RBC,Urine 1 /HPF (0-4); Urine Appearance CLEAR (Clear); Urine Color Straw (Yellow); Urine Specific Gravity 1.028 (1.001-1.035); Urine Urobilinogen < 2.0 EU/DL (0.2-1.0); WBC,Urine <1 /HPF (0-6)
[2020-12-03] MEDS ORDERED: INSULIN REGULAR 100 UNIT/ML IV STA (22:18)
[2020-12-03] MEDS ORDERED: INSULIN REGULAR DRIP 100 ML IV PRN (22:18)
[2020-12-03 22:20] LABS: Barbiturates Screen,Urine Negative (Negative); Benzodiazepines Screen,Urine Negative (Negative); Cannabinoid Screen,Urine Negative (Negative); Opiate Screen,Urine Negative (Negative); Phencyclidine Screen,Urine Negative (Negative)
[2020-12-03 22:56] VITALS: BP 133/94
[2020-12-03] MEDS ORDERED: ALBUTEROL 2.5 MG/3 ML NEB RESP TX PRN (23:26)
[2020-12-03] MEDS ORDERED: INSULIN REGULAR 100 UNIT/ML IV ONE (23:28)
[2020-12-03] MEDS ORDERED: POTASSIUM CHLORIDE RIDER 10 MEQ in PREMIX 1 EACH IV PRN (23:28)
[2020-12-03] MEDS ORDERED: SODIUM PHOSPHATE INJ 14.2 MMOL in SODIUM CHLORIDE 0.9% 250 ML IV PRN (23:28)
[2020-12-03] MEDS ORDERED: DEXTROSE 50% 25 GM/50 ML VIAL IV PRN ×2 (23:28)
[2020-12-03] MEDS ORDERED: MAGNESIUM SULF RIDER 4 GM in PREMIX 1 EACH IV PRN (23:28)
[2020-12-03] MEDS ORDERED: SODIUM CHLORIDE 0.9% 1,000 ML IV ONE (23:28)
[2020-12-03] MEDS ORDERED: MAGNESIUM SULF RIDER 2 GM in PREMIX 1 EACH IV PRN (23:28)
[2020-12-03] MEDS ORDERED: SODIUM BICARB INJ 100 MEQ in STERILE WATER INJ 400 ML IV PRN (23:28)
[2020-12-03] MEDS ORDERED: INSULIN REGULAR DRIP 100 ML IV SCH (23:30)
[2020-12-04] MEDS: SODIUM CHLORIDE 0.9% 1,000 ML IV SCH ×4 (00:04→05:03)
[2020-12-04] MEDS: ENOXAPARIN 40 MG/0.4 ML SYRINGE SUBCUT SCH ×2 (00:15→23:31)
[2020-12-04 00:18] LABS: Calcium 7.5 MG/DL (8.5-10.1); Potassium 3.6 MMOL/L (3.5-5.1)
[2020-12-04 03:19] LABS: ABG Base Excess -0.7 MMOL/L (-2.5-2.5); ABG HCO3 23.8 MMOL/L (20-26); ABG Oxygen Saturation 97.7 % (95-100); ABG PCO2 39.5 MM HG (35-48); ABG PH 7.392 (7.35-7.45); ABG PO2 92.4 MM HG (80-95); ABG TCO2 20.6 MMOL/L (23-27); Allen Test Positive; Pt O2 Delivery Device Room Air
[2020-12-04 04:48] LABS: Alanine Aminotransferase 15 U/L (16-61); Albumin 3.1 G/DL (3.4-5.0); Alkaline Phosphatase 93 U/L (45-117); Aspartate Amino Transferase 6 U/L (0-37); Bilirubin,Direct < 0.100 MG/DL (0.0-0.20); Bilirubin,Indirect 0.3 MG/DL (0.0-1.0); Bilirubin,Total < 0.39 MG/DL (0.2-1.0); Blood Urea Nitrogen 24 MG/DL (7-18); Carbon Dioxide 25 MMOL/L (21-32); Estimated Glom Filtration Rate 101 ML/MIN; Glucose 221 MG/DL (74-106); Potassium 4.4 MMOL/L (3.5-5.1); Sodium 150 MMOL/L (136-145); Thyroid Stimulating Hormone 0.375 uIU/ml (0.358-3.74); Total Protein 7.4 G/DL (6.4-8.2)
[2020-12-04] MEDS ORDERED: SODIUM CHLOR 0.45% KCL 20 MEQ 20 MEQ/1,000 ML BAG IV SCH (05:00)
[2020-12-04 05:20] LABS: Basophils % 0.3 % (0.0-0.8); Eosinophils % 0.1 % (0.00-10.9); Hematocrit 44.4 VOL% (42.0-52.0); Immature Granulocytes % 0.5 %; Immature Granulocytes Absolute 0.04 #; Lymphocytes # 2.5 10*3/uL (1.4-4.0); Lymphocytes % 28.5 % (21.2-54.2); Mean Corpuscular HGB Conc 32.4 GM/DL (32-36); Mean Corpuscular Volume 99.1 FL (87-102); Mean Platelet Volume 9.8 FL (9.6-12.0); Monocytes % 8.4 % (1.7-12.7); Neutrophils % 62.2 % (38.7-73.9); Platelet Count 352 T/CUMM (130-400); Red Blood Count 4.48 MC/CUMM (3.8-5.5); Red Cell Distribution Width 15.1 % (9.3-17.3); White Blood Count 8.9 T/CUMM (4-12)
[2020-12-04 05:31] LABS: Hemoglobin 14.4 GM/DL (14.0-18.0)
[2020-12-04 07:53] LABS: Calcium 9.2 MG/DL (8.5-10.1); Potassium 4.1 MMOL/L (3.5-5.1)
[2020-12-04] MEDS ORDERED: DEXTROSE 50% 25 GM/50 ML VIAL IV PRN (07:59)
[2020-12-04] MEDS ORDERED: GLUCAGON 1 MG VIAL IM PRN (07:59)
[2020-12-04] MEDS ORDERED: DEXTROSE 5% NACL 0.45% 1,000 ML IV SCH (08:00)
[2020-12-04] MEDS ORDERED: POTASSIUM CHLORIDE 20 MEQ TABLET PO PRN (08:02)
[2020-12-04] MEDS: INSULIN GLARGINE 100 UNIT/ML SUBCUT SCH (08:39)
[2020-12-04] MEDS: PANTOPRAZOLE 40 MG TABLET PO SCH (08:40)
[2020-12-04] MEDS: DOCUSATE SODIUM 100 MG CAPSULE PO SCH ×2 (08:40→20:58)
[2020-12-04] MEDS: INSULIN REGULAR 100 UNIT/ML SUBCUT SCH ×3 (11:18→20:59)
[2020-12-04 15:45] LABS: Calcium 8.6 MG/DL (8.5-10.1); Osmolality,Calculated 299.7 MOS/KG (273-304); Potassium 3.8 MMOL/L (3.5-5.1)
[2020-12-04] MEDS ORDERED: SODIUM CHLORIDE 0.45% 1,000 ML IV SCH (16:28)
[2020-12-04] MEDS ORDERED: LITHIUM ER 300 MG TABLET PO SCH (21:00)
[2020-12-04] MEDS ORDERED: DIVALPROEX ER 500 MG TABLET PO SCH (21:00)
[2020-12-04] MEDS ORDERED: LITHIUM 300 MG CAPSULE PO SCH (21:00)
[2020-12-04] MEDS ORDERED: INSULIN GLARGINE 100 UNIT/ML SUBCUT SCH (21:00)
[2020-12-05] MEDS: INSULIN REGULAR 100 UNIT/ML SUBCUT SCH ×2 (07:35→12:00)
[2020-12-05] MEDS: INSULIN GLARGINE 100 UNIT/ML SUBCUT SCH (09:20)
[2020-12-05] MEDS: DOCUSATE SODIUM 100 MG CAPSULE PO SCH (09:20)
[2020-12-05] MEDS: PANTOPRAZOLE 40 MG TABLET PO SCH (09:20)
== END 2020-12-05 12:55 | disposition home or self-care (01) | DRG 638 ==
LOC: N.ED 20:41 → SUATTDRO 22:30 → N.EDINP 22:30 → N.ICU 23:00
PROVIDERS: ADMIT Internal Medicine; ATTEND Internal Medicine

== ENCOUNTER 2020-12-19 15:43 | Observation (INO) ==
[2020-12-19] MEDS ORDERED: SODIUM CHLORIDE 0.9% 1,000 ML IV STA ×2 (16:06→16:57)
[2020-12-19 16:16] LABS: Basophils % 0.4 % (0.0-0.8); Eosinophils % 0.2 % (0.00-10.9); Hematocrit 42.5 VOL% (42.0-52.0); Hemoglobin 13.8 GM/DL (14.0-18.0); Immature Granulocytes % 0.7 %; Immature Granulocytes Absolute 0.07 #; Lymphocytes # 2.2 10*3/uL (1.4-4.0); Lymphocytes % 21.4 % (21.2-54.2); Mean Corpuscular HGB Conc 32.5 GM/DL (32-36); Mean Corpuscular Volume 99.1 FL (87-102); Mean Platelet Volume 9.3 FL (9.6-12.0); Neutrophils % 72.3 % (38.7-73.9); Platelet Count 384 T/CUMM (130-400); Red Blood Count 4.29 MC/CUMM (3.8-5.5); Red Cell Distribution Width 13.7 % (9.3-17.3); White Blood Count 10.1 T/CUMM (4-12)
[2020-12-19 16:32] LABS: ABG HCO3 25.3 MMOL/L (20-26); ABG Oxygen Saturation 96.8 % (95-100); ABG PCO2 46.8 MM HG (35-48); ABG PH 7.369 (7.35-7.45); ABG PO2 82.7 MM HG (80-95); ABG TCO2 23.5 MMOL/L (23-27)
[2020-12-19 16:43] LABS: Alanine Aminotransferase 21 U/L (16-61); Albumin 3.2 G/DL (3.4-5.0); Alkaline Phosphatase 116 U/L (45-117); Aspartate Amino Transferase 19 U/L (0-37); Bilirubin,Total < 0.39 MG/DL (0.2-1.0); Blood Urea Nitrogen 18 MG/DL (7-18); Calcium 9.5 MG/DL (8.5-10.1); Carbon Dioxide 27 MMOL/L (21-32); Estimated Glom Filtration Rate 75 ML/MIN; Osmolality,Calculated 296.8 MOS/KG (273-304); Potassium 4.8 MMOL/L (3.5-5.1); Sodium 130 MMOL/L (136-145); Total Protein 7.7 G/DL (6.4-8.2)
[2020-12-19 16:47] LABS: Glucose 726 MG/DL (74-106)
[2020-12-19 17:08] LABS: Bilirubin,Urine Negative (Negative); Blood, Urine Negative (Negative); Glucose,Urine (UA) >=500 mg/dL (Negative); Ketones,Urine Negative (Negative); Nitrite,Urine Negative (Negative); Protein,Urine Negative; RBC,Urine 1 /HPF (0-4); Urine Appearance CLEAR (Clear); Urine Color Colorless (Yellow); Urine Specific Gravity 1.028 (1.001-1.035); Urine Urobilinogen < 2.0 EU/DL (0.2-1.0)
[2020-12-19] MEDS ORDERED: ONDANSETRON 4 MG/2 ML VIAL IV PRN (17:50)
[2020-12-19] MEDS ORDERED: DEXTROSE 50% 25 GM/50 ML VIAL IV PRN (17:50)
[2020-12-19] MEDS ORDERED: GLUCAGON 1 MG VIAL IM PRN (17:50)
[2020-12-19] MEDS ORDERED: hydrALAZINE 20 MG/1 ML VIAL IV PRN (17:50)
[2020-12-19] MEDS ORDERED: INSULIN LISPRO 100 UNIT/ML SUBCUT STA (17:55)
[2020-12-19] MEDS: ENOXAPARIN 40 MG/0.4 ML SYRINGE SUBCUT SCH (19:36)
[2020-12-19] MEDS: SODIUM CHLORIDE 0.9% 1,000 ML IV SCH (20:06)
[2020-12-20] MEDS: INSULIN LISPRO 100 UNIT/ML SUBCUT SCH ×7 (02:59→21:45)
[2020-12-20 05:45] LABS: Barbiturates Screen,Urine Negative (Negative); Benzodiazepines Screen,Urine Negative (Negative); Cannabinoid Screen,Urine Negative (Negative); Opiate Screen,Urine Negative (Negative); Phencyclidine Screen,Urine Negative (Negative)
[2020-12-20] MEDS: SODIUM CHLORIDE 0.9% 1,000 ML IV SCH ×2 (05:51→23:39)
[2020-12-20] MEDS: NICOTINE 21 MG/24 HR PATCH TRANSDERM SCH (09:04)
[2020-12-20] MEDS: PANTOPRAZOLE 40 MG TABLET PO SCH (09:04)
[2020-12-20 10:41] LABS: Basophils % 0.5 % (0.0-0.8); Eosinophils # 0.1 10*3/uL (0.0-0.87); Eosinophils % 0.8 % (0.00-10.9); Hematocrit 38.4 VOL% (42.0-52.0); Hemoglobin 12.3 GM/DL (14.0-18.0); Immature Granulocytes % 0.6 %; Immature Granulocytes Absolute 0.05 #; Lymphocytes # 2.9 10*3/uL (1.4-4.0); Lymphocytes % 34.4 % (21.2-54.2); Mean Platelet Volume 9.2 FL (9.6-12.0); Monocytes % 4.1 % (1.7-12.7); Neutrophils % 59.6 % (38.7-73.9); Platelet Count 343 T/CUMM (130-400); Red Blood Count 3.84 MC/CUMM (3.8-5.5); Red Cell Distribution Width 13.9 % (9.3-17.3); White Blood Count 8.5 T/CUMM (4-12)
[2020-12-20 11:05] LABS: Calcium 8.2 MG/DL (8.5-10.1); Osmolality,Calculated 279.8 MOS/KG (273-304)
[2020-12-20] MEDS ORDERED: MAGNESIUM SULF RIDER 2 GM/50 ML PREMIX IV ONE (12:51)
[2020-12-20] MEDS: ENOXAPARIN 40 MG/0.4 ML SYRINGE SUBCUT SCH (18:15)
[2020-12-20] MEDS ORDERED: INSULIN GLARGINE 100 UNIT/ML SUBCUT SCH (21:00)
[2020-12-21 06:58] LABS: Basophils % 0.3 % (0.0-0.8); Calcium 8.3 MG/DL (8.5-10.1); Eosinophils # 0.1 10*3/uL (0.0-0.87); Eosinophils % 1.5 % (0.00-10.9); Hematocrit 37.4 VOL% (42.0-52.0); Hemoglobin 12.2 GM/DL (14.0-18.0); Immature Granulocytes % 0.8 %; Immature Granulocytes Absolute 0.05 #; Lymphocytes # 2.7 10*3/uL (1.4-4.0); Lymphocytes % 43.7 % (21.2-54.2); Mean Corpuscular HGB Conc 32.6 GM/DL (32-36); Mean Corpuscular Volume 98.2 FL (87-102); Mean Platelet Volume 9.2 FL (9.6-12.0); Neutrophils % 48.7 % (38.7-73.9); Osmolality,Calculated 278.3 MOS/KG (273-304); Platelet Count 311 T/CUMM (130-400); Potassium 3.6 MMOL/L (3.5-5.1); Red Blood Count 3.81 MC/CUMM (3.8-5.5); Red Cell Distribution Width 13.7 % (9.3-17.3); White Blood Count 6.2 T/CUMM (4-12)
[2020-12-21] MEDS: PANTOPRAZOLE 40 MG TABLET PO SCH (09:38)
[2020-12-21] MEDS: INSULIN LISPRO 100 UNIT/ML SUBCUT SCH ×7 (09:39→22:25)
[2020-12-21] MEDS: NICOTINE 21 MG/24 HR PATCH TRANSDERM SCH (09:41)
[2020-12-21] MEDS: SODIUM CHLORIDE 0.9% 1,000 ML IV SCH ×2 (11:35→21:30)
[2020-12-21] MEDS: ENOXAPARIN 40 MG/0.4 ML SYRINGE SUBCUT SCH (17:43)
[2020-12-21] MEDS ORDERED: INSULIN GLARGINE 100 UNIT/ML SUBCUT SCH (21:00)
[2020-12-22 05:21] LABS: Calcium 8.1 MG/DL (8.5-10.1); Osmolality,Calculated 282.1 MOS/KG (273-304); Potassium 3.6 MMOL/L (3.5-5.1)
[2020-12-22] MEDS: SODIUM CHLORIDE 0.9% 1,000 ML IV SCH ×2 (08:05→08:06)
[2020-12-22] MEDS: INSULIN LISPRO 100 UNIT/ML SUBCUT SCH ×2 (08:52→08:54)
[2020-12-22] MEDS: NICOTINE 21 MG/24 HR PATCH TRANSDERM SCH (08:54)
[2020-12-22] MEDS: PANTOPRAZOLE 40 MG TABLET PO SCH (08:54)
[2020-12-22 11:39] VITALS: BP 121/85
== END 2020-12-22 12:17 | disposition home health service (06) ==
LOC: N.ED 15:43 → N.EDINP 15:43 → SUATTDRO 17:50 → N.4E 19:02
PROVIDERS: ADMIT Emergency Medicine; ATTEND Internal Medicine